=== PATIENT | female | born 1985 | race Caucasian/White ===

== ENCOUNTER 2017-03-19 22:29 | Emergency (ER) | payer BC ==
[~2017-03-19] VITALS: Ht 172.7 cm; Wt 86.4 kg
[~2017-03-19 22:29] MED LIST: IBUP-1542 PO; LANO28CR TOP; PREN1TAB74 PO
[2017-03-19 22:31] VITALS: Ht 172.7 cm; Wt 86.4 kg
[2017-03-19] MEDS ORDERED: KETOROLAC 15 MG INJ IM STA (23:27)
--- NOTE | 2017-03-20 00:04 | RADRPT ---
PROCEDURE: XR Chest. CLINICAL INDICATION: Chest pain. TECHNIQUE: Single frontal chest x-ray. COMPARISON: None available. FINDINGS: The cardiomediastinal silhouette is unremarkable. No pneumothorax, pleural effusion or consolidation is seen. No acute osseous abnormality is noted. IMPRESSION: 1. No acute cardiopulmonary abnormality. RPTAT: HFN .Abdiel Davila MD, MD Date Time Electronically viewed and signed by .Abdiel Davila MD, on 03/20/2017 00:04 .N/
--- NOTE | 2017-03-20 00:35 | ERD ---
ER Documentation Chief Complaint Date/Time DATE: 03/20/17 TIME: 00:29 Chief Complaint REPRODUCEABLE R SIDED CHEST PRESSURE WITH INSPIRATION & SORE THROAT X 4DAYS HPI This 31-year-old female presents to emergency department today with complaint of reproducible right-sided chest pain with pressure, pain with inspiration and a sore throat 10 days. Patient denies any injury, denies history of allergies , asthma, patient denies smoking. Patient states that she is able to eat and drink without deficit, pain with swallowing, denies fever, chills, body aches. Patient has history of anxiety, denies SI/HI ROS All systems reviewed and are negative except as per history of present illness. Medications Home Meds Active Scripts Lorazepam* (Lorazepam*) 1 Mg Tablet, 1 MG PO Q8, #10 TAB Prov:JAYCOB,JOHNSON 03/20/17 Ibuprofen* (Motrin*) 400 Mg Tab, 400 MG PO Q6, #30 TAB Prov:JAYCOB,JOHNSON 03/20/17 Lanolin* (Zuw-R-Abeffz*) 28 Gm Cream..g., 1 APPLIC TOP BEDSIDE MEDICATION Y for BEDSIDE FOR MIKE TO NIPPLES for 30 Days, #4 Prov:CEM BURKS MD 06/11/16 Ibuprofen* (Ibuprofen*) 600 Mg Tablet, 600 MG PO Q6 for 10 Days, #2 TAB Prov:CEM BURKS MD 06/11/16 Reported Medications Vit-Iron Fumarate-FA ( Vitamin Formula) 1 Tab Tablet, 1 TAB PO DAILY, TAB 06/09/16 Allergies Allergies: Coded Allergies: No Known Drug Allergies (Verified Allergy, Unknown, 06/09/16) PMhx/Soc Medical and Surgical Hx: pt denies Medical Hx, pt denies Surgical Hx History of Surgery: No (DENIES MEDICAL AND SURGICAL HX.) Anesthesia Reaction: No Hx Neurological Disorder: No Hx Respiratory Disorders: No Hx Cardiac Disorders: No Hx Psychiatric Problems: No Hx Miscellaneous Medical Probl: No Hx Alcohol Use: No Hx Substance Use: No Hx Tobacco Use: No Smoking Status: Never smoker Physical Exam Vitals Vitals stable triage notes reviewed Physical Exam Const: No acute distress Head: Atraumatic Eyes: Normal Conjunctiva PERRLA, EOMI ENT: Mucous membranes moist, nasal mucosa edematous, moist, septum midline without bleeding points, pharynx injected, tonsils not visualized, uvula rises and falls with pronation Neck: Full range of motion. Thyroid normal, no palpable nodes, or enlargement. No JVD, no bruit Resp: Chest rises and falls symmetrically, clear to auscultation bilaterally no rales wheezes or rhonchi, no respiratory distress Cardio: Regular rate and rhythm, no murmurs, S1, S2, no S3, S4 Abd: Soft, non tender, non distended no epigastric tenderness. No CVA tenderness Skin: Back: Ext: Neur: Awake and alert Psych: Normal Mood and Affect Results 24 hrs Current Medications Medications (Trade) Dose Ordered Sig/Jefry Route PRN Reason Start Time Stop Time Status Last Admin Dose Admin Ketorolac Tromethamine (Toradol) 15 mg ONCE STAT IM 03/19/17 23:27 03/19/17 23:30 DC 03/20/17 00:12 Procedures/MDM PROCEDURE: XR Chest. CLINICAL INDICATION: Chest pain. TECHNIQUE: Single frontal chest x-ray. COMPARISON: None available. FINDINGS: The cardiomediastinal silhouette is unremarkable. No pneumothorax, pleural effusion or consolidation is seen. No acute osseous abnormality is noted. IMPRESSION: 1. No acute cardiopulmonary abnormality. .Abdiel Davila MD, MD Date Time Electronically viewed and signed by .Abdiel Davila MD, on 03/20/2017 00: 04 EKG read by me: Rate/Rhythm: Regular rate and rhythm at a rate of 71 bpm Intervals: Normal Impression: No evidence of ischemia or arrhythmia This pleasant 31-year-old female presents to emergency department today with right-sided reproducible chest wall pain. Intermittent shortness of breath. Patient reports pain radiates to her right back in her throat feels tight. Patient denies any history of allergies or asthma, denies any history of cardiovascular disease, denies hypertension, hyperlipidemia, smoking, or family history of heart disease. Patient reports that she has 5 children. Her youngest is 9 months old, denies breast-feeding, denies any possibility of injury. When asked about anxiety patient begins to cry. Denies wanting to hurt herself, denies wanting to hurt other people, no history of depression. Low suspicion for cardiovascular cause of chest pain EKG was obtained; normal sinus rhythm at a ventricular rate of 71 bpm. Chest x-ray clear with no evidence of cardiomegaly or rib fracture. Patient will be treated for anxiety symptoms. Patient was treated with Toradol intramuscularly for chest wall pain with improvement of pain symptoms. Patient will be discharged home with a short course of Ativan. Instructed to follow-up with primary care physician for depression/anxiety evaluation. Return to emergency department for worsening of symptoms, shortness of breath, chest pain, feelings of hopelessness. I feel the patient is stable for discharge and outpatient management by primary care physician I have discussed results, examination findings, the treatment plan with the patient and family present prior to discharge. Indications for emergent reevaluation, side effects of medication were also discussed. All questions were answered. Patient verbalizes understanding and agrees with plan of care. Departure Diagnosis: Primary Impression: Chest wall pain Additional Impression: Anxiety reaction Condition: Good Patient Instructions: Treating Anxiety Disorders with Medication, Understanding Anxiety Disorders Additional Instructions: Thank you for for coming to [facility] for your care today. Please ask your nurse or provider if you have questions about your care today and do not leave until all your questions have been answered. Please use any medications given as directed and follow-up with your doctor (or the doctor you were referred to) in the next 2-3 days. If you do not have a primary care doctor you may follow up at the [facility] (listed below). You may also use motrin and tylenol as needed for fever and/or pain unless instructed otherwise by your provider or nurse. Indications for more urgent follow-up have been discussed, but you may return to the Emergency Department at ANY time for any worrisome or worsening symptoms. If you have abdominal pain, please know that no test or exam you received is perfect and you should follow up within 8 hours for continued pain. If you had any imaging studies today, such as an X-Ray or CT Scan, these studies will be reviewed later by a radiologist. You will be called if there are important findings that were not identified today, so make sure the contact information you provided at registration is correct. If you received any narcotic pain control medicine today, such as Vicodin, Morphine or Dilaudid, your coordination and judgment may be affected for a number of hours. Please do not drive or operate heavy machinery, and you may want someone to assist you at home. If you were given a prescription for narcotic medication, be aware that it is very addictive- use sparingly and only if necessary. JOHNSON DEVRIES March 20, 2017 00:35
[2017-03-20] MEDS ORDERED: IBUP400T22 PO (00:37)
[2017-03-20] MEDS ORDERED: LORA1TAB PO (00:38)
[2017-03-20 00:47] VITALS: BP 121/75; PULSE 69; RESP 16; TEMP 98.9
== END 2017-03-20 00:47 | disposition home or self-care (01) ==
LOC: FTE 22:29
DX: R07.89 Other chest pain (principal); F41.1 Generalized anxiety disorder
CPT/HCPCS: 71010; 93005; 96372; J1885; Z7502

== ENCOUNTER 2017-10-06 19:13 | Emergency (ER) | payer BC ==
[~2017-10-06] VITALS: Ht 172.7 cm; Wt 98.1 kg
[~2017-10-06 19:13] MED LIST changes: +IBUP400T22 PO; +LORA1TAB PO
[2017-10-06 19:18] VITALS: Ht 172.7 cm; Wt 98.1 kg
[2017-10-06] MEDS ORDERED: IBUP400T22 PO (21:02)
--- NOTE | 2017-10-06 21:23 | RADRPT ---
PROCEDURE: XR Chest. CLINICAL INDICATION: SOB TECHNIQUE: Single frontal view of the chest was obtained COMPARISON: None FINDINGS: The heart and mediastinum are within normal limits. The lungs are clear. There is no pleural effusion or pneumothorax. The osseous structures are unremarkable. IMPRESSION: 1. No acute cardiopulmonary disease. RPTAT:AAJJ Salvador Harris Physician Date Time Electronically viewed and signed by Salvador Harris Physician on 10/06/2017 21:23 QL/
--- NOTE | 2017-10-06 23:56 | ERD ---
ER Documentation Chief Complaint Chief Complaint left chest pain radiating to left arm(numbness) x "couple of days." Hx anx HPI This is a 32-year-old female presenting to the emergency department complaining of localized, moderate intermittent left-sided chest pain for the past couple days. She states that she does have associated shortness of breath when it does come. She admits to having numbness and tingling in her hands. She states that she has a history of anxiety and she has not taken any medications for this ROS All systems reviewed and are negative except as per history of present illness. Medications Home Meds Active Scripts Ibuprofen* (Motrin*) 400 Mg Tab, 400 MG PO Q6H Y for PAIN AND OR ELEVATED TEMP, #30 TAB Prov:FATEMEH MCCLELLAND PA-C 10/06/17 Lorazepam* (Lorazepam*) 1 Mg Tablet, 1 MG PO Q8, #10 TAB Prov:JAYCOB,JOHNSON 03/20/17 Ibuprofen* (Motrin*) 400 Mg Tab, 400 MG PO Q6, #30 TAB Prov:JAYCOB,JOHNSON 03/20/17 Lanolin* (Ecd-B-Zceohm*) 28 Gm Cream..g., 1 APPLIC TOP BEDSIDE MEDICATION Y for BEDSIDE FOR MIKE TO NIPPLES for 30 Days, #4 Prov:CEM BURKS MD 06/11/16 Ibuprofen* (Ibuprofen*) 600 Mg Tablet, 600 MG PO Q6 for 10 Days, #2 TAB Prov:CEM BURKS MD 06/11/16 Reported Medications Vit-Iron Fumarate-FA ( Vitamin Formula) 1 Tab Tablet, 1 TAB PO DAILY, TAB 06/09/16 Allergies Allergies: Coded Allergies: No Known Drug Allergies (Verified Allergy, Unknown, 06/09/16) PMhx/Soc History of Surgery: No (DENIES MEDICAL AND SURGICAL HX.) Anesthesia Reaction: No Hx Neurological Disorder: No Hx Respiratory Disorders: No Hx Cardiac Disorders: No Hx Psychiatric Problems: No Hx Miscellaneous Medical Probl: No Hx Alcohol Use: No Hx Substance Use: No Hx Tobacco Use: No Smoking Status: Never smoker Physical Exam Vitals Vital Signs Date Time Temp Pulse Resp B/P Pulse Ox O2 Delivery O2 Flow Rate FiO2 10/06/17 19:18 98.8 75 20 122/101 99 Physical Exam Const: Top well-nourished Head: Atraumatic Eyes: Normal Conjunctiva ENT: Normal External Ears, Nose and Mouth. Neck: Full range of motion..~ No meningismus. Resp: Clear to auscultation bilaterally Cardio: Regular rate and rhythm, no murmurs Abd: Soft, non tender, non distended. Normal bowel sounds Skin: No petechiae or rashes Back: No midline or flank tenderness Ext: No cyanosis, or edema Neur: Awake and alert Psych: Normal Mood and Affect Procedures/MDM This is a 32-year-old female presenting to the emergency department with localized intermittent left-sided chest pain that is associated with shortness of breath and numbness tingling. This is likely related to anxiety, there was no evidence of ACS, pulmonary embolism or pneumonia. Patient appears well and stable to be discharged home to follow-up with her primary care physician. EKG did not show any evidence of STEMI. Chest x-ray did not show any evidence of infiltrates pneumothorax or pleural effusion. EKG: read and signed off by myself and Rate/Rhythm: Normal Sinus Rhythm 80bpm QRS, ST, T-waves: No changes consistent w/ acute ischemia Impression: No evidence of ischemia or arrhythmia Departure Diagnosis: Primary Impression: Chest pain Condition: Stable Patient Instructions: Chest Pain, Uncertain Cause Referrals: NO PRIMARY,CARE PHYSICIAN (PCP) Additional Instructions: FOLLOW UP WITH YOUR PRIMARY CARE PHYSICIAN TOMORROW.Return to this facility if you are not improving as expected. Take all medicines as directed. Return to this facility if you are not improving as expected. FATEMEH MCCLELLAND PA-C Oct 06, 2017 23:56
== END 2017-10-06 21:47 | disposition home or self-care (01) ==
LOC: FTE 19:13
DX: R07.9 Chest pain, unspecified (principal)
CPT/HCPCS: 71010; 93005; Z7502

== ENCOUNTER 2017-12-31 21:31 | Emergency (ER) | END 2018-01-01 03:27 | disposition left against medical advice (07) ==